=== PATIENT | female | born 1950 ===

== ENCOUNTER 2017-12-29 08:36 | Day surgery (SDC) | payer MEDICARE, OTHER ==
[2017-12-29] MEDS ORDERED: Lactated Ringer's 500 ML IV ONE (09:13)
[2017-12-29 09:18] VITALS: TEMP 98
[2017-12-29] MEDS ORDERED: Propofol 10 mg/ml Inj (20 ML) ONE (11:24)
[2017-12-29 11:57] VITALS: BP 112/59; PULSE 79; RESP 16; O2SAT 100
== END 2017-12-29 11:58 | disposition home or self-care (01) ==
LOC: H.ENDO 08:36
PROVIDERS: ATTEND Internal Medicine Gastroenterology
DX: Z12.11 Encounter for screening for malignant neoplasm of colon (principal); K64.8 Other hemorrhoids
CPT/HCPCS: G0121; J2001; J2704; J7120